=== PATIENT | female | born 1965 | race American Indian/Alaskan Native ===

== ENCOUNTER 2018-05-19 16:53 | Outpatient (CLI) | payer BC | END 2018-05-19 16:54 | disposition home or self-care (01) | LOC: RAD 16:53 ==

== ENCOUNTER 2018-06-07 12:54 | Outpatient (CLI) | payer BC | END 2018-06-07 12:55 | disposition home or self-care (01) | LOC: RAD 12:54 ==

== ENCOUNTER 2018-06-09 08:26 | Outpatient (CLI) | payer BC | END 2018-06-09 08:27 | disposition home or self-care (01) | LOC: LAB 08:26 ==